=== PATIENT | female | born 1960 | race Caucasian/White ===

== ENCOUNTER 2020-08-31 13:45 | Inpatient (IN) ==
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
[2020-08-31] MEDS ORDERED: PROPOFOL IV EMULSION 10 MG/ML 20 ML VIAL IV ONE (14:27)
[2020-08-31] MEDS ORDERED: fentaNYL citrate 100 MCG/2 ML VIAL IV STA (14:35)
--- NOTE | 2020-08-31 15:04 | XRay Report ---
XR ankle LT 2V CLINICAL HISTORY: Left ankle deformity s/p fall COMPARISON: None FINDINGS: The majority of the left fibula has been resected. There are multiple surgical clips. Anayeli r dome is intact. Note is made of an acute oblique moderately displaced comminuted fracture through t he distal shaft, metadiaphysis and metaphysis of the left tibia. Fracture is angulated. No additional acute fractures are identified. IMPRESSION: 1. Acute moderately displaced comminuted distal left tibial fracture, as described above. 2. Status post partial fibular resection. ACT 112: Negative or not required by law. Electronically signed by: Giorgi Cisneros M.D. 08/31/2020 3:03 PM
--- NOTE | 2020-08-31 15:17 | XRay Report ---
XR tibia fibula LT 2V, XR foot LT 2V CLINICAL HISTORY: Left ankle deformity s/p fall. COMPARISON STUDY: None. FINDINGS: There is a comminuted and displaced distal left tibial fracture. This is better appreciated on the same day ankle radiograph. The proximal to mid tibia and left foot show no fracture or disloc ation. Near-complete resection of the fibular shaft. Multiple surgical clips are seen within the left lower leg. The Lisfranc joint is intact. 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 IMPRESSION: 1. The distal left tibial fracture is better appreciated on the same day ankle radiograph. 2. No acute fractures within the proximal to mid tibia. The majority of the fibula has been resected. 3. No fractures within the left foot. ACT 112: Negative or not required by law. Electronically signed by: Basim Muñoz M.D. 08/31/2020 3:16 PM
[2020-08-31] MEDS ORDERED: PROPOFOL IV EMULSION 10 MG/ML 20 ML VIAL IV STA (16:09)
--- NOTE | 2020-08-31 16:23 | Emergency Department Note ---
Pre Sedation Assessment Vital Signs Temp Pulse Pulse Resp BP BP Pulse Ox 08/31/20 16:09 83 20 172/102 H 99 08/31/20 16:04 81 20 169/94 H 100 08/31/20 15:59 90 16 170/94 H 100 08/31/20 15:53 84 16 160/97 H 100 08/31/20 14:54 76 25 H 137/83 100 08/31/20 13:58 36.7 C 86 18 137/83 96 Pre-Sedation Airway Assessment Smoking Status: Current every day smoker Short, Thick Neck: No Thyromental Distance: > or= 3.5 Finger Breadths Oral Cavity: + WNL Mallampati Class: III ASA: ASA2E NPO Status Date of Last Intake of Fluids: 08/31/20 Time of Last Intake of Fluids: 10:00 Date of Last Intake of Solid Food: 08/31/20 Time of Last Intake of Solid Foods: 00:01 Notes The planned sedation has been discussed with the patient. Informed Consent was obtained. I have identified the patient, determined the appropriateness of sedation and have assessed the patient immediately prior to the procedure. All medicine(s) and interventions are by my order.
--- NOTE | 2020-08-31 16:24 | Emergency Department Note ---
Post Sedation Assessment Vital Signs Temp Pulse Pulse Resp BP BP Pulse Ox 08/31/20 16:09 83 20 172/102 H 99 08/31/20 16:04 81 20 169/94 H 100 08/31/20 15:59 90 16 170/94 H 100 08/31/20 15:53 84 16 160/97 H 100 08/31/20 14:54 76 25 H 137/83 100 08/31/20 13:58 36.7 C 86 18 137/83 96 Recovery Score Activity: Moves 4 extremities Respiration: Deep Breath/Cough Circulation: +/-20% PreAnes Value Consciousness: Fully Awake Oxygen Saturation: > 92% On Room Air Post Anesthesia Score: 10 Post Sedation Plan On clinical assessment, the patient appears to have tolerated the sedation without complications. Patient is recovering as anticipated. Patient will continue to be monitored by nursing and may be discharged when sedation discharge criteria are met per below protocol. Upon Completions of procedure up to 15 minutes continue every 5 minute vital signs and the P.A.R. score; then discharge to a Phase I or Fast Track to Phase II per the following guidelines: * Discharge Patient to appropriate Phase II area if PAR is 8 or greater or ret urn to pre- procedure baseline. The post - procedure orders will be as directed. * If PAR score is less than 8 or not return to pre-procedure baseline then patient will follow Phase I monitoring till PAR is reached for Phase II. The Phase I may be done in procedure room or may call to secure a Phase I area. * If naloxone or flumazenil are used for reversal, hold in Phase I for continued monitoring from when last reversal dose was given for a minimum of 60 minutes or longer pending the nurse and/or physician discretion of patient condition before discharge to Phase II. Please call the Sedation Physician to re-evaluate and complete post-note for discharge to Phase II area. Do NOT discharge from procedure sedation or Phase 1 until post- sedation evaluation note is complete by procedure /sedation MD Sedation Discharge Instructions to be given to the patient at discharge to home. Sedation Data Sedation Times Sedation Start Date: 08/31/20 Sedation Start Time: 15:54 Sedation End Date: 08/31/20 Sedation End Time: 16:07 Total Sedation Time: 13 Procedure Times Procedure Start Time:: 15:56 Procedure End Time: 16:05
--- NOTE | 2020-08-31 16:25 | Emergency Department Note ---
ED Visit Note Verbal and written consent was obtained for sedation and reduction. Sedation was performed by myself and reduction was performed by my MINDY Felix. Patient was sedated with a total of 120 mg of propofol given and 20-30 increments. Patient tolerated sedation well. She woke up and was oriented to person place and time. She was able to cough and wiggle her toes. Sensations intact. Patient was splinted and the splint was reassessed following placement by myself. Good cap refill. Sensation intact. Able to wiggle toes. EM PROCEDURE NOTE- PROCEDURAL SEDATION Sedation Level: Moderate PRIOR TO THE PROCEDURE THE FOLLOWING INFORMATION WAS VERIFIED: Procedure/Indication: Reduction left tibial fracture Verify Correct Patient: Yes Verify Correct Site: Yes Verify Correct Procedure: Yes Patient has been NPO for 4 hours Airway Assessment: Difficult facial/neck anatomy ASA Physical Status: 2 Procedure sedation was discussed with the patient. Risks and benefits were explained with the possible risks including but not limited to hypotension, allergic reaction, vomiting, pneumonia, loss of respiratory effort, cardiac arrest, and emergence reaction. PROCEDURE NOTE: Preparation for the sedation procedure included: cardiac nurse specialist, IV access, pulse oxymetry, ETCO2 monitor, oxygen, suction and ambu bag. Sedation was accomplished using propofol 120mg IV. I provided anesthesia care for this patient for 13 minutes. Shredded Filler Cigar Maker Machine/Vacuum Truck Driver: Cali Ashford DO. Complication(s) during the procedure: None Mental status post procedure: Response to verbal stimuli - Appropriate Disposition See nurses record for monitoring/vital signs Alert prior to discharge .
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
[2020-08-31] MEDS: MoRPHine SULFATE 4 MG/ML 1 ML CARP\\VIAL IV PRN ×3 (16:33→20:06)
--- NOTE | 2020-08-31 16:48 | XRay Report ---
XR chest 1V portable CLINICAL HISTORY: Preoperative evaluation. COMPARISON STUDY: Chest radiograph July 05, 2019. FINDINGS: Lung volumes are normal. Lungs are clear. There is no pneumothorax or pleural effusion. Car diac size is normal. Mediastinal contours are normal. There is no evidence for pulmonary edema. IMPRESSION: No acute cardiopulmonary findings. ACT 112: Negative or not required by law. Electronically signed by: Giorgi Cisneros M.D. 08/31/2020 4:47 PM
--- NOTE | 2020-08-31 16:50 | XRay Report ---
XR ankle LT min 3V routine CLINICAL HISTORY: reduction COMPARISON: Left ankle radiographs August 31, 2020 at 2:35 PM. FINDINGS: Overlying cast is noted. The majority of the left fibula has been resected. Alignment of t he oblique fracture through the distal diaphysis, metadiaphysis and metaphysis of the left tibia has significantly improved since prereduction radiographs. Fracture is comminuted. Talar dome is intact. IMPRESSION: Significant improvement in alignment of the acute comminuted oblique distal left tibial f racture. ACT 112: Negative or not required by law. Electronically signed by: Giorgi Cisneros M.D. 08/31/2020 4:48 PM
[2020-08-31 17:10] LABS: Basophils # (auto) 0.02 K/uL (0-0.2); Basophils % (auto) 0.3 %; Eosinophils # (auto) 0.05 K/uL (0-0.5); Eosinophils % (auto) 0.9 %; Hematocrit (blood only) 37.6 % (37-47); Hemoglobin 12.8 g/dL (12.0-16.0); Lymphocytes # (auto) 1.04 K/uL (1.2-3.4); Mean Corpuscular Hemoglobin 31.3 pg (25-34); Mean Corpuscular Volume 91.9 fL (80-100); Mean Platelet Volume 9.8 fL (7.4-10.4); Monocytes # (auto) 0.43 K/uL (0.11-0.59); Monocytes % (auto) 7.5 %; Neutrophils # (auto) 4.23 K/uL (1.4-6.5); Neutrophils % (auto) 73.3 %; Platelet Count 167 K/uL (130-400); RDW Coefficient of Variation 13.6 % (11.5-14.5); RDW Standard Deviation 45.3 fL (36.4-46.3); Red Blood Count 4.09 M/uL (4.2-5.4); White Blood Count 5.77 K/uL (4.8-10.8)
[2020-08-31 17:27] LABS: Partial Thromboplastin Ratio 0.9; Partial Thromboplastin Time 23.3 Seconds (21.0-31.0); Prothrombin Time 10.6 Seconds (9.0-12.0)
[2020-08-31 17:29] LABS: Albumin Globulin Ratio 1.3 (0.9-2); Albumin Level 4.1 gm/dl (3.4-5.0); BUN Creatinine Ratio 11.7 (10-20); Bilirubin,Total 0.3 mg/dl (0.2-1); Calcium 9.2 mg/dl (8.5-10.1); Creatinine Clr Calc Pharmacy 71.6 ml/min; Est GFR (African American) 97.8; Est GFR (Non-African American) 84.4; Globulin 3.2 gm/dl (2.5-4.0); Potassium 3.6 mmol/L (3.5-5.1); Total Protein 7.3 gm/dl (6.4-8.2)
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
[2020-08-31] MEDS ORDERED: diphenhydrAMINE Capsule 25 MG CAP PO PRN (20:56)
[2020-08-31] MEDS ORDERED: ACETAMINOPHEN 325 MG TAB PO PRN (20:56)
[2020-08-31] MEDS: ONDANSETRON INJ 2 MG/ML 2 ML VIAL IV PRN (22:22)
[2020-08-31] MEDS: oxyCODONE HCL IR 5 MG TAB (IMMEDIATE RELEASE) PO PRN (22:22)
[2020-08-31] MEDS: MoRPHine SULFATE 2 MG/ML CARP IV PRN (22:23)
[2020-08-31] MEDS: SODIUM CHLORIDE 0.9% 1000ML 1,000 ML IV SCH (22:24)
[2020-09-01] MEDS: oxyCODONE HCL IR 5 MG TAB (IMMEDIATE RELEASE) PO PRN ×2 (03:59→10:39)
[2020-09-01] MEDS: MoRPHine SULFATE 2 MG/ML CARP IV PRN ×2 (04:00→08:47)
[2020-09-01] MEDS: ONDANSETRON INJ 2 MG/ML 2 ML VIAL IV PRN (04:03)
[2020-09-01] MEDS: LEVOTHYROXINE SODIUM 88 MCG TABLET PO SCH (05:36)
[2020-09-01] MEDS ORDERED: ceFAZolin 2000MG 2,000 MG/15 ML SYR IV SCH (06:00)
[2020-09-01] MEDS: CHOLECALCIFEROL 1,000 UNITS 25 MCG TAB PO SCH (07:35)
[2020-09-01] MEDS ORDERED: CHOLECALCIFEROL 1,000 UNITS 25 MCG TAB PO SCH (09:00)
[2020-09-01] MEDS ORDERED: ASPIRIN 81 MG ECTAB PO SCH (09:00)
[2020-09-01] MEDS: SODIUM CHLORIDE 0.9% 1000ML 1,000 ML IV SCH ×2 (10:39→16:14)
[2020-09-01] MEDS ORDERED: BACITRACIN INJ 50,000 UNIT VIAL ONE (11:27)
[2020-09-01] MEDS ORDERED: BUPIVACAINE/EPINEPHRINE 0.5% MPF 1:200,000 30 ML VIAL ONE (11:27)
[2020-09-01] MEDS ORDERED: NEOSTIGMINE METHYLSULFATE 5 MG/5 ML SYR ONE (11:35)
[2020-09-01] MEDS ORDERED: ONDANSETRON INJ 2 MG/ML 2 ML VIAL ONE (11:35)
[2020-09-01] MEDS ORDERED: MIDAZOLAM HCL 1 MG/ML 2ML VIAL ONE ×2 (11:35→12:32)
[2020-09-01] MEDS ORDERED: GLYCOPYRROLATE 0.2 MG/ML VIAL ONE (11:35)
[2020-09-01] MEDS ORDERED: PROPOFOL IV EMULSION 10 MG/ML 20 ML VIAL IV ONE (11:35)
[2020-09-01] MEDS ORDERED: fentaNYL citrate 100 MCG/2 ML VIAL ONE (11:35)
[2020-09-01] MEDS ORDERED: DEXAMETHASONE SOD INJ 4 MG/ML VIAL ONE (11:35)
[2020-09-01] MEDS ORDERED: LIDOCAINE HCL 2% 2 ML VIAL/AMP(20MG/ML) INFIL ONE (11:35)
[2020-09-01] MEDS ORDERED: ONDANSETRON INJ 2 MG/ML 2 ML VIAL IV PRN ×2 (12:19→16:14)
[2020-09-01] MEDS ORDERED: ATROPINE SULFATE 0.1 MG/ML 10ML SYR IV PRN (12:19)
[2020-09-01] MEDS ORDERED: PROMETHAZINE HCL 12.5 MG in SODIUM CHLORIDE 0.9% 50 ML IV PRN (12:19)
[2020-09-01] MEDS ORDERED: fentaNYL citrate 100 MCG/2 ML VIAL IV PRN (12:19)
[2020-09-01] MEDS ORDERED: ePHEDrine sulfate 50 MG/ML AMP IV PRN (12:19)
[2020-09-01] MEDS ORDERED: BUPIVACAINE 0.5 % 5 MG/1 ML MPF 30ML VIAL ONE (12:22)
[2020-09-01] MEDS ORDERED: WATER, STERILE FOR INJ 10 ML VIAL ONE (12:22)
--- NOTE | 2020-09-01 12:42 | History & Physical Bridge Note ---
Date of Service September 01, 2020 History & Physical Bridge Note I have examined the patient, reviewed the History & Physical and in the interval since the performance of the History & Physical I have noted the following changes of clinical significance: no changes noted
[2020-09-01] MEDS ORDERED: KETOROLAC 30 MG/ML VIAL ONE (14:29)
--- NOTE | 2020-09-01 14:42 | Fluoroscopy Report ---
INTRAOPERATIVE RADIOGRAPHS CLINICAL HISTORY: Open reduction and internal fixation of the left tibia. Fluoroscopy time: 22 seconds. FINDINGS: 4 spot fluoroscopic views of the left ankle are correlated with radiographs dated 08/31/2020 . The fibular shaft is surgically absent. There has been buttress plate fixation along the lateral co rtex of the distal tibia, which transfixes an oblique fracture. Near-anatomic alignment is maintained . Numerous cortical lag screws transfix the buttress plate. At least 2 additional cortical lag screws transfix the fracture site. The orthopedic hardware appears intact. Overlying soft tissue edema is n oted. There are numerous surgical clips throughout the calf. IMPRESSION: Intraoperative images from open reduction and internal fixation of the left tibia as abov e. Electronically signed by: Renzo Davidson M.D. 09/01/2020 2:41 PM
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
[2020-09-01] MEDS ORDERED: diphenhydrAMINE Capsule 25 MG CAP PO PRN (16:14)
[2020-09-01] MEDS ORDERED: METOCLOPRAMIDE HCL INJ 5 MG/ML 2 ML VIAL IV PRN (16:14)
[2020-09-01] MEDS ORDERED: bisacodyL 10 MG SUPP PR PRN (16:14)
[2020-09-01] MEDS ORDERED: MAGNESIUM HYDROXIDE SUSP 30 ML UDC PO PRN (16:14)
[2020-09-01] MEDS ORDERED: ALUMINUM/MAGNESIUM SUSP 30 ML UDC PO PRN (16:14)
[2020-09-01] MEDS ORDERED: oxyCODONE HCL IR 5 MG TAB (IMMEDIATE RELEASE) PO PRN (16:14)
[2020-09-01] MEDS ORDERED: HYDROmorphone INJ 0.5 MG/0.5 ML SYR IV PRN (16:14)
[2020-09-01] MEDS ORDERED: NALOXONE HCL 0.4 MG/1 ML VIAL/CARP IV PRN (16:14)
[2020-09-01] MEDS: ASPIRIN 81 MG ECTAB PO SCH (20:37)
[2020-09-01] MEDS: KETOROLAC 30 MG/ML VIAL IV SCH (20:38)
[2020-09-01] MEDS: DOCUSATE SODIUM 100 MG CAP PO SCH (20:38)
[2020-09-01] MEDS: ceFAZolin 1000MG 1,000 MG/7.5 ML SYR IV SCH (20:40)
[2020-09-01] MEDS ORDERED: SENNA 8.6 MG TAB PO SCH (21:00)
--- NOTE | 2020-09-01 21:11 | Anesthesiology Progress Note ---
Date of Service September 01, 2020 Anesthesia Post Procedure Vital Signs Vital Signs: Temp Pulse Pulse Pulse Resp BP Pulse Ox 09/01/20 19:10 37.1 C 103 H 18 109/65 95 09/01/20 17:11 36.4 C L 91 H 16 117/67 95 09/01/20 16:40 36.9 C 96 H 18 113/71 94 09/01/20 16:20 36.7 C 72 18 128/73 95 09/01/20 16:19 36.8 C 102 H 16 114/77 95 09/01/20 16:00 95 H 15 98 09/01/20 15:50 94 H 13 136/75 99 09/01/20 15:40 36.6 C 90 12 145/76 H 99 09/01/20 15:30 97 H 16 131/81 99 09/01/20 15:20 96 H 18 129/81 98 09/01/20 15:10 100 H 25 H 138/81 98 09/01/20 15:01 36.6 C 108 H 20 133/77 99 09/01/20 12:01 37.3 C 81 16 111/66 98 09/01/20 07:40 36.9 C 86 16 86/55 L 97 08/31/20 22:41 36.9 C 78 16 133/74 98 Pain Intensity Left Ankle: Pain Intensity: 4 Left Leg: Pain Intensity: 5 Transfer of Care Handoff Completed per policy Notes Mental Status: alert / awake / arousable and participated in evaluation Patient Amnestic to Procedure: Yes Nausea / Vomiting: adequately controlled Pain: adequately controlled Airway Patency, RR, SpO2: stable & adequate BP & HR: stable & adequate Hydration State: stable & adequate Anesthetic Complications: no major complications apparent and Pt Satisfied with anesthetic care Notes: block is functioning well
[2020-09-02] MEDS: SODIUM CHLORIDE 0.9% 1000ML 1,000 ML IV SCH ×2 (03:24→11:02)
[2020-09-02] MEDS: KETOROLAC 30 MG/ML VIAL IV SCH ×2 (03:47→08:55)
--- NOTE | 2020-09-02 05:26 | Electrocardiogram Report ---
Test Reason : Blood Pressure : / mmHG Vent. Rate : 074 BPM Atrial Rate : 074 BPM P-R Int : 176 ms QRS Dur : 084 ms QT Int : 392 ms P-R-T Axes : 075 080 063 degrees QTc Int : 435 ms Normal sinus rhythm with sinus arrhythmia Normal ECG When compared with ECG of 05-JUL-2019 23:31, No significant change was found Confirmed by Blayne Cristobal ([id number]) on 09/02/2020 5:25:38 AM Referred By: REFERRED SELF Confirmed By:Blayne Cristobal
[2020-09-02] MEDS: ceFAZolin 1000MG 1,000 MG/7.5 ML SYR IV SCH (05:48)
[2020-09-02] MEDS: LEVOTHYROXINE SODIUM 88 MCG TABLET PO SCH (05:48)
--- NOTE | 2020-09-02 07:52 | Progress Notes ---
DATE: 09/02/2020 SUBJECTIVE: A 59-year-old female postop day 1 from ORIF of a left distal tibia fracture. She is doing well this morning. The block seems to still be in effect. No pain. Denies any other complaints. OBJECTIVE: VITAL SIGNS: Temperature 36.9. Vital signs stable. GENERAL: Shows a pleasant, middle-aged female. She is sitting up in bed and looks comfortable. EXTREMITIES: Examination of the left leg reveals the splint to be intact. Toes are brisk with good refill. No significant motor function yet. Her toes are still numb. ASSESSMENT: A 59-year-old female postop day 1 from open reduction internal fixation of a left distal tibia fracture. The block is still in effect. Pain is controlled. PLAN: 1. DVT prophylaxis including thigh-high TEDs, SCDs, and aspirin twice a day for the next 6 weeks. 2. PT/OT. She is nonweightbearing on the left leg for 6 weeks. 3. Pain control, doing well with current pain regimen. 4. Disposition: Plan to discharge her to home. We will have psychologist social make sure she is set up with wheelchair and walker.
[2020-09-02] MEDS: ASPIRIN 81 MG ECTAB PO SCH (08:55)
[2020-09-02] MEDS: DOCUSATE SODIUM 100 MG CAP PO SCH (08:55)
[2020-09-02] MEDS: CHOLECALCIFEROL 1,000 UNITS 25 MCG TAB PO SCH (08:56)
[2020-09-02] MEDS ORDERED: MULTIVITAMIN TAB PO SCH (09:00)
--- NOTE | 2020-09-08 09:43 | Discharge Summary ---
Date of Service September 08, 2020 Discharge Data Consultations 08/31/20 20:56 Consult Case Management - Discharge Planning Routine 09/01/20 16:14 Consult Case Management - Discharge Planning Routine Procedures Performed Operation Date: 09/01/20 13:00 Actual Procedures p Open Redution Internal Fixation Left Tibia Fracture(Left) - Onofre Quinn MD Hospital Course (1) Closed fracture of left distal tibia: This patient is a 59 year old female admitted on 08/31/20 with a displaced distal tibia fracture. She underwent closed reduction in the ER by the ER staff and was admitted. On 09/01/20 she underwent open reduction internal fixation of the tibia fracture. She tolerated the procedure well and there were no complications. Transferred to the PACU post op and later to the orthopedic floor for further care. She was given ancef for antibiotic prophylaxis. She was also given HANH stockings, SCDs, and aspirin for DVT prophylaxis. Hemoglobin, hematocrit, and vital signs were monitored during her hospital stay and remained stable. Did not require any blood transfusions. There were no complications dur ing her hospital stay. By post op day #1 the patient was tolerating a regular diet, pain was reasonably controlled with oral pain medicine, and she was participating in physical therapy. On post op day #1 the patient was discharged home. She was given printed discharge instructions including prescriptions for extra strength tylenol, aspirin, and oxycodone. Non weightbearing on the left leg. Continue HANH stockings. Follow up approximately 2 weeks post op or sooner if there are problems or concerns. Coding Level of Care Code None Diagnoses Closed fracture of left distal tibia S82.302A
== END 2020-09-02 11:52 | disposition home or self-care (01) | DRG 494 ==
LOC: ED 13:45 → 3N 17:01